=== PATIENT | female | born 1975 | race Caucasian/White ===

== ENCOUNTER 2018-02-07 20:47 | Emergency (ER) | payer SELFPAY | END 2018-02-07 23:05 | disposition home or self-care (01) | LOC: D.ER 20:47 | DX: K02.9 Dental caries, unspecified (principal); K08.89 Other specified disorders of teeth and supporting structures; K05.30 Chronic periodontitis, unspecified ==

== ENCOUNTER 2018-03-09 21:52 | Emergency (ER) | payer SELFPAY | END 2018-03-09 22:56 | disposition home or self-care (01) | LOC: D.ER 21:52 | DX: S63.91XA Sprain of unspecified part of right wrist and hand, initial encounter (principal); W22.8XXA Striking against or struck by other objects, initial encounter; Y93.89 Activity, other specified; Y92.019 Unspecified place in single-family (private) house as the place of occurrence of the external cause; F17.200 Nicotine dependence, unspecified, uncomplicated ==

== ENCOUNTER 2018-03-20 15:20 | Emergency (ER) | payer SELFPAY | END 2018-03-20 17:53 | disposition home or self-care (01) | LOC: D.ER 15:20 | DX: M79.675 Pain in left toe(s) (principal) ==

== ENCOUNTER 2018-07-02 12:57 | Emergency (ER) | payer OTHER ==
[~2018-07-02] VITALS: Ht 165.1 cm; Wt 86.4 kg
[2018-07-02 13:12] VITALS: Ht 165.1 cm; Wt 86.4 kg
[2018-07-02] MEDS ORDERED: GABAPENTIN100 MG (13:13)
[2018-07-02] MEDS ORDERED: CYCLOBENZAPRINE5 MG PO (13:13)
[2018-07-02 13:35] LABS: BASOPHILS 0.3 % (0-2); EOSINOPHILS 1.8 % (0-7); HEMOGLOBIN 13.9 g/dL (12-16); IMMATURE GRANULOCYTES 0.2 % (0-5); LYMPHOCYTES 32.5 % (15-50); MCH 31.7 pg (26.0-34.0); MCHC 33.9 g/dL (31.0-37.0); MCV 93.4 fL (80.0-100.0); MEAN PLATELET VOLUME 8.7 fL (7.4-10.4); MONOCYTES 6.6 % (2-11); NEUTROPHILS 58.6 % (40-80); PLATELET COUNT 269 10x3/uL (130-400); RBC 4.39 10x6/uL (4.00-5.40); RDW 14.4 % (11.5-14.5)
[2018-07-02 13:55] LABS: ALBUMIN 3.9 g/dL (3.4-5.0); ALKALINE PHOSPHATASE 78 U/L (46-116); ALT (SGPT) 16 U/L (10-68); BILIRUBIN - TOTAL 0.38 mg/dL (0.2-1.3); CALC OSMOLALITY 276 mosm/kg (275-300); CALCIUM 8.7 mg/dL (8.5-10.1); CARBON DIOXIDE 29.6 mmol/L (21.0-32.0); CHLORIDE - SERUM 101 mmol/L (98-107); CREATININE - SERUM 0.8 mg/dL (0.6-1.3); GLUCOSE 92 mg/dL (74-106); POTASSIUM - SERUM 4.4 mmol/L (3.5-5.1); PROTEIN - SERUM 6.9 g/dL (6.4-8.2); SODIUM 138 mmol/L (136-145); UREA NITROGEN 14 mg/dL (7-18); eGFR NON AFRICAN AMERICAN 83 mL/min (90-120)
[2018-07-02 14:36] VITALS: BP 132/84
== END 2018-07-02 14:56 | disposition home or self-care (01) ==
LOC: D.ER 12:57
PROVIDERS: Family Medicine
DX: N93.9 Abnormal uterine and vaginal bleeding, unspecified (principal)